=== PATIENT | male | born 1965 | race Caucasian/White ===

== ENCOUNTER 2018-02-02 22:37 | Emergency (ER) | payer OTHER ==
[~2018-02-02] VITALS: Ht 182.9 cm; Wt 104.7 kg
[~2018-02-02 22:37] MED LIST: DILANTIN100 MG PO; DILANTIN30 MG PO; LIPITOR10 MG PO; MOTRIN800 MG PO
[2018-02-03 00:25] VITALS: BP 109/81
== END 2018-02-03 00:29 | disposition home or self-care (01) ==
LOC: EME 22:37
PROC: 0HQGXZZ Repair Left Hand Skin, External Approach (ICD-10-PCS; principal; 2018-02-02)
PROC: 3E0234Z Introduction of Serum, Toxoid and Vaccine into Muscle, Percutaneous Approach (ICD-10-PCS; 2018-02-02)
DX: S61.211A Laceration without foreign body of left index finger without damage to nail, initial encounter (principal); W26.0XXA Contact with knife, initial encounter; Y93.G3 Activity, cooking and baking; Z23 Encounter for immunization
CPT/HCPCS: 99281; 99284